=== PATIENT | male | born 1990 | race Caucasian/White ===

== ENCOUNTER 2017-03-22 10:28 | Inpatient (IN) | payer OTHER ==
[~2017-03-22] VITALS: Ht 182.9 cm; Wt 85.6 kg
--- NOTE | ~2017-03-22 | INDIVTXPL2 ---
"PATIENT: JAMILAH SAMANIEGO | | [facility] UNIT #: [id number] | [address] AGE/SEX: 26 M : 88 | [address] | [place] [phone] ADMIT/REG DATE: 03/22/17 | ROOM: [facility] LOC: ADTC | ADTC | Individualized Treatment Plan DATE: 04/07/17 Problem Statement/Issue Identified: Client unresolved grief and difficulty coping with stress so turned to drinking and needs to address these grief/stress issues to avoid relapse. Goal: Client has grief/trauma over breakup/difficulty coping and is to address this while in treatment (can do EMDR therapy). Objectives/Activities to achieve goal: 1. Client is to get oriented to EMDR by watching video and doing EMDR safe-place with cousnelor to help with relaxation, can be a skill to cope with stress in general. Share with counselor after he practices it. Due Date: 04/07/17 Complete: Incomplete: 2. Client is to fill out Grief packet on grandfather and write VENT letter on relationship loss. Process feelings with counselor and if wants to, can also share in group. Due Date: 04/15/17 Complete: Incomplete: 3. Client can do EMDR with counselor, if willing, on traumatic losses. See counselor notes. Due Date: 04/14/17 Complete: Incomplete: Client Signature Date Counselor Signaure: Date Outcome/Measurement of Progress Towards Goal: Counselor Signature: Date "
--- NOTE | ~2017-03-22 | TXPLANREV ---
"PATIENT: JAMILAH SAMANIEGO | | [facility] UNIT #: [id number] | [address] AGE/SEX: 26 M : 88 | [address] | [place] [address] ADMIT/REG DATE: 03/22/17 | ROOM: [facility] LOC: ADTC | ADTC | Treatment Plan/Staffing Review Date: 04/12/17 Treatment plan was reviewed and determined appropriate as written: yes, client is working on Relapse Prevention. Treatment plan was reviewed and the following changes/addition/deletions are necessary: Discharge plans were reviewed and determined appropriate as previously documented: Client is to discharge on 04/19/17, He is being referred back to Leland Glover at [place] in [place] on 04/23 at 9am and aftercare group on Mondays 6-7pm starting 04/26/17. Client also is referred to AA/NA 3+x/week and to talk with sponsor(s) 3-4x/week. And hopefully work steps with a sponsor. 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 Staff Present: Khloe Stevenson, Hoa Lopez, Thiago Livingston, Jossie Galvez, Vannessa Mario, Patrick Wang PRIMARY COUNSELOR: Umu Oliver Client Signature Counselor Signature Date Time "
--- NOTE | ~2017-03-22 | INDIVTXPL2 ---
PATIENT: JAMILAH SAMANIEGO | | [facility] UNIT #: [id number] | [address] AGE/SEX: 26 M : 88 | [address] | [place] [address] ADMIT/REG DATE: 03/22/17 | ROOM: [facility] LOC: ADTC | ADTC | Individualized Treatment Plan DATE: 04/13/17 Problem Statement/Issue Identified: Client has weak boundaries, needs to improve ability to be assertive and hold boundaries for self to cope with high risk situations and avoid relapse. Goal: Client is to build stronger boundaries and learn about boundaries/assertiveness to strengthen his recovery. Objectives/Activities to achieve goal: 1. Client is to practice saying "no" to peers by first letting them know he needs help by them creating/role-playing situations that he needs to say "no". Share progress with counselor. Due Date: 04/16/17 Complete: Incomplete: Client Signature Date Counselor Signaure: Date Outcome/Measurement of Progress Towards Goal: Counselor Signature: Date
--- NOTE | ~2017-03-22 | INDIVTXPL2 ---
"PATIENT: JAMILAH SAMANIEGO | | [facility] UNIT #: [id number] | [address] AGE/SEX: 26 M : 88 | [address] | [place] [address] ADMIT/REG DATE: 03/22/17 | ROOM: [facility] LOC: ADTC | ADTC | Individualized Treatment Plan DATE: 04/09/17 Problem Statement/Issue Identified: Client relapsed/returned to alcohol after previous treatment attempts. Goal: Client is to learn about relapse prevention, identifying relapse triggers and develop a plan of how to get through strugges/triggers and succeed in recovery. Objectives/Activities to achieve goal: 1. Client is to attend Relapse Prevention classes every Wednesday 3-4pm while in treatment and participate. Also see 5:30pm education on 04/13 and 04/15 to help build skills in relapse prevention. See relapse class and education notes. Due Date: 04/19/17 Complete: Incomplete: 2. Client is to fill out Relapse Prevention packet, identifying top 5-10 relapse triggers and discuss with counselor how he can cope/actions to take to avoid relapse. Due Date: 04/19/17 Complete: Incomplete: Client Signature Date Counselor Signaure: Date Outcome/Measurement of Progress Towards Goal: Counselor Signature: Date "
--- NOTE | ~2017-03-22 | TXPLANREV ---
"PATIENT: JAMILAH SAMANIEGO | | [facility] UNIT #: [id number] | [address] AGE/SEX: 26 M : 88 | [address] | [place] [phone] ADMIT/REG DATE: 03/22/17 | ROOM: [facility] LOC: ADTC | ADTC | Treatment Plan/Staffing Review Date: 04/05/17 Treatment plan was reviewed and determined appropriate as written: yes, client has completed step 1 and is working on feelings letters, reading booklets on healthy/unhealthy relationships and Shame-Faced. Treatment plan was reviewed and the following changes/addition/deletions are necessary: Discharge plans were reviewed and determined appropriate as previously documented: Discharge plans were reviewed and determined to be as follows: Client is scheduled to discharge on 04/19/17, he is being referred to his therapist-Leland Glover of [facility]. He also is to attend 3-5 AA/NA meetings a week and is to open up to sponsor about feelings/stressors daily as well as talk to understand how to apply recovery program/work steps/etc. 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 His parents are very supportive of his treatment and recovery. Staff Present: Lorenza Chase, Khloe Stevenson, Jossie Galvez, Yolanda Hall, Hoa Lopez, Patricia Atkinson, Thiago Livingston, Patrick Wang, Vannessa Mario. PRIMARY COUNSELOR: Umu Oliver Client Signature Counselor Signature Date Time "
--- NOTE | ~2017-03-22 | INDIVTXPL2 ---
"PATIENT: JAMILAH SAMANIEGO | | [facility] UNIT #: [id number] | [address] AGE/SEX: 26 M : 88 | [address] | [place] [address] ADMIT/REG DATE: 03/22/17 | ROOM: [facility] LOC: ADTC | ADTC | Individualized Treatment Plan DATE: 03/29/17 Problem Statement/Issue Identified: Client continues to use alcohol despite ongoing negative consequences. Goal: Client is to learn about alcohol/drug addiction, identifying consequences of his use and learn how to work a stronger AA/NA program of recovery. Objectives/Activities to achieve goal: 1. Client is to fill out Getting Started and Step 1 packets, identifying 15+ consequences of his use and share with counselor. Share selected pages in group. Due Date: GS-04/02/17 & Step 1-04/07/17 Complete: Incomplete: 2. Client is to call temporary sponsor weekly while in treatment and share/ask questions to get to know each other better. Report progress to counselor. Due Date: ongoing Complete: Incomplete: 3. Client is to attend and talk at AA/NA weekly, and would benefit to help chair meeting or pick topic at a meeting. Due Date: ongoing Complete: Incomplete: Client Signature Date Counselor Signaure: Date Outcome/Measurement of Progress Towards Goal: Counselor Signature: Date "
--- NOTE | ~2017-03-22 | RESCARESUM ---
PATIENT: JAMILAH SAMANIEGO | | [facility] UNIT #: [id number] | [address] AGE/SEX: 26 M : 88 | [address] | [place] [phone] ADMIT/REG DATE: 03/22/17 | ROOM: [facility] LOC: ADTC | ADTC | Summary of Residential Care Primary Counselor: Umu Oliver [facility] Date of Admission: 03/22/17 Date of Discharge: 03/19/17 Referral Source: self, Leland Glover [facility], and Gas Pumper Jasson Grimaldo Primary Care Provider Prior to Admission: Dr. Arrieta Admitting Diagnosis: F10.20 Alcohol use disorder-severe, F17.20 Tobacco use disorder Discharge Diagnosis: same Goals Achieved: Client successfully completed residential treatment for alcoholism. He learned about chemical addictions and he did Step 1 very thoroughly. He did get a sponsor and a personal value for AA/NA meetings showing acceptance over powerlessness of his addiction. Client did work on Relapse Prevention, Grief over loss of grandfather, trauma/ resentment over breakup with S.O., owning feelings and how his addiction hurt others to his parents in feelings letters, and having boundaries to say "no". He did EMDR on the traumatic breakup with his girlfriend and responded well to this. 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 Continued Obstacles to Sobriety/Relapse Issues: boredom, self-pity, not asking for help, old using friends/places, slack on meetings, stress, anger, stuffing feelings, put on a front that he is fine, perfectionism. Family Issues Addressed: Clients parents did come to the Family Program with client and a private family session. They appear very supportive of clients recovery and career. They all shared feelings letters with one another and this seemed positive. 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 Client also responded well to EMDR therapy and is a good candidate to do this in the future if needed. PATIENT: JAMILAH SAMANIEGO | | [facility] UNIT #: [id number] | [address] [place] [address] AGE/SEX: 26 M : 88 | [address] | [place] [phone] ADMIT/REG DATE: 03/22/17 | ROOM: [facility] LOC: ADTC | [facility] | Summary of Residential Care Reason For Discharge: x Completed Residential TX Goals and Ready For Next Level of Care Left Tx Against Medical Advice/Treatment Goals Not Complete Completed Residential Tx Goals But Refusing Continuing Care Recommendations Discharged Due to Noncompliance/Treatment Goals not Completed Discharged Earlier Than Planned Due to: Continuing Care Plan/Recommendations: Intensive Partial Care x Sponsor Partial Care x AA Meetings/NA Meetings x Outpatient Co-dependency Services [facility] Marriage Counseling Other Specific Continuing Care Plan: Client is being referred to Leland Glover at [place] and is to see him 04/23/17 at 9am for his first aftercare session and he is to be in group therapy on Wednesday nights from 6-7pm on 04/26/17. He also is to attend AA/NA 3x/week and call his temporary sponsor 3x/week while finding his permanent AA sponsor. PRIMARY COUNSELOR: Umu Oliver
--- NOTE | ~2017-03-22 | INDIVTXPL2 ---
"PATIENT: JAMILAH SAMANIEGO | | [facility] UNIT #: [id number] | [address] AGE/SEX: 26 M : 88 | [address] | [place] [phone] ADMIT/REG DATE: 03/22/17 | ROOM: [facility] LOC: ADTC | ADTC | Individualized Treatment Plan DATE: 03/29/17 Problem Statement/Issue Identified: Client is experiencing family distancing and his drinking worried them as a result of past alcohol usage. Goal: Client is to learn about effects of addiction on self/family & build more open/honest communication with family to help with support. Objectives/Activities to achieve goal: 1. Client is to attend Family Educational program and Wednesday and participate. See client notes. Due Date: 04/12/17 Complete: Incomplete: 2. Client is to have family session with parents, discussing his past use of alcohol, their concerns and his plan of recovery to improve honest communication. Due Date: 04/12/17 Complete: Incomplete: 3. Client is to write feelings letters to parents and [place], owning how his addiction hurt them and his feelings and plan of change/improvement/recovery. Share in group/family group. Due Date: 04/12/17 Complete: Incomplete: Client Signature Date Counselor Signaure: Date Outcome/Measurement of Progress Towards Goal: Counselor Signature: Date "
--- NOTE | ~2017-03-22 | CLPRLASSUM ---
"PATIENT: JAMILAH SAMANIEGO | | [facility] UNIT #: [id number] | [address] AGE/SEX: 26 M : 88 | [address] | [place] [address] ADMIT/REG DATE: 03/22/17 | ROOM: [facility] LOC: ADTC | ADTC | Client Problem List/Assessment Summary Date: 03/29/17 Problems identified by the client: alcoholism/3 DUI's, family, cope with stress/grief, boundaries, relapse prevention Problems identified by significant others: alcoholism, cope with stress Client's Strengths: friendly, determined/strong-willed, creative Problem List: Code: T Client continues to use alcohol despite ongoing negative consequences. Code: T Client is experiencing family distancing and his drinking worried them as a result of past alcohol usage. Code: T Client unresolved grief and difficulty coping with stress so turned to drinking and needs to address these grief/stress issues to avoid relapse. Code: T Client has weak boundaries, needs to improve ability to be assertive and hold boundaries for self to cope with high risk situations and avoid relapse. Code: T Client relapsed/returned to alcohol after previous treatment attempts. Code Gibbs: T: to be addressed during course of treatment O: problem noted, expected to resolve itself with abstinence--specific tx plan not required R: problem noted, will be referred upon discharge PRIMARY COUNSELOR: Umu Oliver"
--- NOTE | 2017-03-22 16:20 | NUR ---
Recovery 101- nurse needed to meet with client so he was only in class 10 minutes and did get questionaire on consequences of his use.
--- NOTE | 2017-03-22 17:14 | NUR ---
ADMISSION NOTE Client is a 26 y/o single male, referred to treatment by probation and brought here today by his mom from his home in [place]. Client states NKMA and brings no medications with him today. Client states DOC is alcohol, last used 3 months ago in an unknown amount. CLient anticipates family group participation from his mom. Client was searched, no contraband found. Rights/Responsibilities: Copy given and explained to client. Signed and accepted by client. Client oriented to physical lay out of the ADTC unit, given Big Book and admission packet. A Douglas was assigned. Rory
--- NOTE | 2017-03-22 17:34 | NUR ---
IS 1 hr/ Client and counselor got acquainted, went over his initial tx plan and gambling screen. Client reports he got on probation March 2016 after 3rd DUI, has interlock for car. Went to IOP before court, didn't take it serious and relapsed, so they thought he wouldn't qualify for Res.Tx so he went through IOP again and relapsed before completed so came here. 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 He says this can be very stressful and he turns to alcohol. He shared not very close to siblings. Parents confronted him after 3rd DUI so are supportive of him getting treatment, dad is an [employer] news assignment editor. He said dad is too busy to come but mom will come and she brought him here. He lives with his parents. He came to like AA and has AA friend with over 1 year in that is doing "really well" and they like to go to dirt car races together. Attends meetings 2-3x/week. His PO randomly calls him to come in which he doesn't like. Oriented to counseling and is to finish initial paperwork and then start on packet.
--- NOTE | 2017-03-22 23:06 | NUR ---
Client played a game for rec and attended on site N.A.Meeting SE: Meeting new people in treatment
--- NOTE | 2017-03-23 04:57 | NUR ---
Bed Note: Client was in bed and motionless at all bed checks
--- NOTE | 2017-03-23 12:17 | NUR ---
A.M. 1.5 hr group/ Assignments shared were step 1, feelings letters, timeline to music, and a group member asking for help on how to forgive self. This client was attentive and participated by sharing what brought him here.
--- NOTE | 2017-03-23 15:11 | NUR ---
Tech Note: Client joined group for afternoon walk, listened to speaker from [facility] and is working on Getting Started.
--- NOTE | 2017-03-23 16:01 | NUR ---
Tech Note: Client attended Relapse Prevention education with Yolanda.
--- NOTE | 2017-03-23 19:54 | NUR ---
Education: 1 hour lecture on STD/AID/HIV gimarvel by [facility].
--- NOTE | 2017-03-23 22:33 | NUR ---
Tech note : Client worked on [email or web address] crafts and get well cards. Client participated in guided meditation and went to an onsite AA meeting.
--- NOTE | 2017-03-24 04:15 | NUR ---
Bed note: Client was in bed with eyes closed and no distress at all bed checks
--- NOTE | 2017-03-24 11:13 | NUR ---
Tech Note: Client is working on the [employer] Book.
--- NOTE | 2017-03-24 12:24 | NUR ---
AM GROUP 13:1/1.5 HR: Client and peers heard multiple clients process assignments and issues. Most did offer feedback, asked clarifying questions and shared from their own experiences. This client sat quietly, but appeared attentive.
--- NOTE | 2017-03-24 13:18 | NUR ---
Tech Note: Client walked in the hallways for afternoon exercise.
--- NOTE | 2017-03-24 13:22 | NUR ---
Education One Hour: Client heard from members of the recovery community, who shared their experience, strength and hope.
--- NOTE | 2017-03-24 17:28 | NUR ---
SPIRITUAL EDUCATION 1 HR. Topics today were orienting newcomers and then broke into groups and did presentations on their sections from [employer].
--- NOTE | 2017-03-24 18:46 | NUR ---
Education: 1 hour lecture given by counselor on "Disease concept".
--- NOTE | 2017-03-24 22:26 | NUR ---
Tech note: Client played catch phrase for rec and attended an onsite NA meeting. SE: NA
--- NOTE | 2017-03-25 04:59 | NUR ---
Bed note: Client was in bed with eyes closed and no distress at all bed checks.
--- NOTE | 2017-03-25 10:43 | NUR ---
Tech Note; Client participated in light stretching for morning exercise. Client stated that he is working on, "How to Get Started in Treatment' and reading the Big Book.
--- NOTE | 2017-03-25 11:30 | NUR ---
AM GRP 1.5 HRS, Ratio 1:12/ Clt participated in grp discussion on various topics, including having fun in recovery, how addiction hurts everyone around them, and what to do just to stay in recovery. This clt participated, but did so minimally.
--- NOTE | 2017-03-25 12:51 | HP ---
ADMIT: 03/22/2017 RM/LOC: [facility] MR#: [id number] [address] [facility] [address] [place] [id number] JAMILAH SAMANIEGO [id number] [address] [place] [address] History and Physical SEX: M AGE: 26 : 1990 DATE OF SERVICE: CHIEF COMPLAINT: Alcoholism, drinking out of control, continuing to drink while on probation. CLINICAL HISTORY: The patient is a 26-year-old white male from [place], [place] admitted to the residential care program for treatment of his alcohol use disorder. The patient readily admits that he has a problem with alcohol. He is a daily drinker, typically drinking at least 6 to 10 beers per day. Drinking heavier on weekends. The patient notes that his drinking has led to significant legal problems. He has been arrested for 3rd offense DUI on 02/24/2016. The patient subsequently had a chemical dependency evaluation, and it was recommended that he go to treatment. He has been doing outpatient treatment at [facility] in [place], but has continued to drink. Despite being involved in intensive outpatient therapy and continuing to be on probation, his diplomatic officer gave him the option of coming to treatment or having his probation revoked. The patient notes he opted to come to treatment recognizing that his drinking is causing him significant financial as well as legal problems as well as affected his business. 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 He notes alcohol is his drug of choice. He has been drinking alcohol since approximately age 16. His drinking has escalated over the last 5 years. As noted, daily drinker drinking to intoxication. He does admit when drinking heavier. He does have blackouts. He has had significant legal problems, which has led to his current financial issues as well. Admitted at this time for treatment of his alcohol use disorder. He denies any other illicit drug use. PAST MEDICAL HISTORY: PREVIOUS HOSPITALIZATIONS: None. PREVIOUS OPERATIONS: None. CURRENT MEDICATIONS: None. ALLERGIES: None known. MEDICAL ILLNESSES: He denies any chronic medical problems. Notes he has no ongoing health problems. He is noted to be a smoker, typically smokes less than a pack a day. REVIEW OF SYSTEMS: A 12-point review of systems is negative with no significant cardiac, pulmonary, GI, , musculoskeletal, or neurologic problems. SOCIAL HISTORY: The patient is single. He graduated high school in 2007. 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 He notes he currently lives with his parents in [place], [place]. He has no children. ADMIT: 03/22/2017 RM/LOC: [facility] MR#: [id number] [address] [place] [phone] JAMILAH SAMANIEGO [id number] [address] [place] [address] History and Physical SEX: M AGE: 26 : 1990 FAMILY HISTORY: The patient notes that his parents are still . Their health is described as good. He notes his parents used to drink fairly heavily, but no longer drink. He is the youngest of 3 children in the family. He has an older sister and older brother, but he is unaware of anyone else in the family with a significant chemical dependency issue. PHYSICAL EXAMINATION: VITAL SIGNS: Temp is 97.4, pulse 78, respirations 14, blood pressure 145/87, height 6 feet, and weight is 187 pounds. GENERAL: The patient is a 26-year-old white male, who appears his stated age. He is in no acute distress. He is oriented x3. HEENT: Today is unremarkable. Nose and throat noninflamed. Oropharynx normal. NECK: Supple. Thyroid not enlarged. No cervical adenopathy. No neck masses. LUNGS: Noted to be clear. HEART: Regular rhythm without murmur. ABDOMEN: Today is soft and nontender. No masses. No organomegaly. No hernias. Bowel sounds are normoactive. He has no CVA or suprapubic tenderness. GENITALIA: Normal male. EXTREMITIES: Normal to gross exam. No bony deformities. No clubbing or cyanosis. No peripheral edema. INTEGUMENT: No rashes or worrisome skin lesions. NEUROLOGIC: Exam is within normal limits. No focal deficit. Balance and gait normal. Cranial nerves II through XII grossly intact. MENTAL STATUS EXAMINATION: He is pleasant, cooperative. Affect is appropriate. He has no bizarre ideation. No delusions. No significant depressive symptoms. He is oriented x3. He appears to be of average intelligence. His memory is intact. Insight is limited. Judgment is guarded. ASSESSMENT AT THE TIME OF ADMISSION: 1. Alcohol use disorder, severe. 2. Tobacco use disorder. PLAN: Plan is to admit the patient to the residential care program with tentative discharge date of 04/19/2017 upon completion of treatment. He wants return to his home in [place], [place] and continue to follow up with one of the outpatient aftercare programs in [place]. Adelso Lindsey MD/ tomas JOB #: [id number] CC: Adelso Lindsey, Attending Physician ADMIT: 03/22/2017 RM/LOC: [id number] [facility] MR#: [id number] [facility] [id number] JAMILAH SAMANIEGO [address] [address] [place] [address] History and Physical SEX: M AGE: 26 : 1990 NO FAMILY PHYSICIAN, Family Physician
--- NOTE | 2017-03-25 13:55 | NUR ---
IS 1 hr/ Counselor and client went over BPS and discussed more about clients life. He fully knows he was chronic alcoholic, couldn't stop after having 1 beer and was having blackouts. He states he was skipping classes in college and his grades suffered. He shared about a belief in God. Will set up tx planning and Problems/needs next session. He is done working on GS packet and was given Step 1.
--- NOTE | 2017-03-25 14:00 | NUR ---
FAMILY CONTACT- Clients parents were called, mom said they will be coming, did set up family session 04/01 at 4:40. They hope he works on being sober, how to cope being around old drinking friends. Counselor did bring up 1/2way house can be plan B if client struggles. They said most of clients work is in [place].
--- NOTE | 2017-03-25 16:12 | NUR ---
Step Education 1 hr/Focus was on step 4 making a searching and fearless moral inventory of ourselves. Handed out some questions each person answered on paper and then we discussed. This person participated.
--- NOTE | 2017-03-25 16:20 | NUR ---
Education 1 Hour: Client heard from two members of the recovery community, who shared their experience strength and hope.
--- NOTE | 2017-03-25 20:24 | NUR ---
Education: 1 Hour. Client attended Chava Sanchez "Unhealthy Families" video.
--- NOTE | 2017-03-25 22:58 | NUR ---
Client went on a walk for rec, participated in guided meditation, and attended the on unit A.A.Meeting. SE: Speaker
--- NOTE | 2017-03-26 05:34 | NUR ---
tech note: client was motionless in no distress at all bed checks.
--- NOTE | 2017-03-26 11:30 | NUR ---
Group 1.5 hr/ 12:1 Clients heard peers share GS and Step 1 packets, this client was attentive.
--- NOTE | 2017-03-26 14:46 | NUR ---
Tech Note: Client joined our group walk for exercise. Watched video titled "Sound of Silence" and is working on Step 1.
--- NOTE | 2017-03-26 15:40 | NUR ---
PEER REVIEWS 1.25 HRS: Clt participated in peer reviews and took a risk to give open and honest feedback to those receiving a review.
--- NOTE | 2017-03-26 20:29 | NUR ---
TECH NOTE: Client participated in reading of guidelines, watched TV/movies SE: pepsi back in the pop machine
--- NOTE | 2017-03-27 04:31 | NUR ---
BED NOTE: Client was in bed, motionless with eyes closed all bed checks.
--- NOTE | 2017-03-27 16:17 | NUR ---
Tech Note: Client is working on Step 1.
--- NOTE | 2017-03-27 20:21 | NUR ---
Tech note: Clt played a game for recreation and attended offsite AA mtg. Clt played cards and watched movies. SE was movie
--- NOTE | 2017-03-28 04:25 | NUR ---
BED NOTE: Client was in bed motionless with eyes closed all three bed checks.
--- NOTE | 2017-03-28 15:48 | NUR ---
Tech Note: Client participated in Big Book study. Client stated that he is working on Step One.
--- NOTE | 2017-03-28 23:01 | NUR ---
Tech Note: Client attended the A.A.Panel with Kj Rivera SE: Big Book Study and A.A.Panel
--- NOTE | 2017-03-29 04:37 | NUR ---
Bed Note: Client was laying in bed and motionless at all bed checks.
--- NOTE | 2017-03-29 09:44 | NUR ---
Tech note: Client is working on BB
--- NOTE | 2017-03-29 11:30 | NUR ---
PEER REVIEW 1.5 hr/ Clients had 4 peer reviews and this client gave good feedback.
--- NOTE | 2017-03-29 12:55 | NUR ---
Education Note: Clients attended speaker for education Kit J.
--- NOTE | 2017-03-29 16:00 | NUR ---
RECOVERY 101 1 hr/ Clients discussed what they are learning from attending the 12 step recovery meetings about fundamentals of recovery, how to work a program such as: get and use a sponsor, work the steps, read C.A.L., HOW/honesty, openminded &willing, service work, HP/spirituality, opening up, slogans, serenity prayer, home group/meetings, etc. Clients shared and got into story telling at times. They learned 15% is addiction and 85% is the living problem so this is why keep going to meetings and working the program is vital.
--- NOTE | 2017-03-29 17:19 | NUR ---
IS 1 hr/ Client and counselor went over BPS and did treatment planning, discussed his problems/needs. He shared how hurtful situation with GF and a lyn friend of his that cheated with her, he stayed in relationshp a couple more years but his alcoholism progressed and he didn't treat her right. Client shared how chronic his drinking got, did drink to help with hangovers in AM, drank to cope, drank for grief, etc. He will plan to write ammends letters to parents and his dog. Client said he shared in group about this past relationship and now he has difficulty trusting anyone.
--- NOTE | 2017-03-29 17:21 | NUR ---
TRAUMA NOTE- Client had major hurt/trauma when lyn friend cheated with his GF, and his grandfathers was hard on him. May benefit from grief work and EMDR.
--- NOTE | 2017-03-29 18:19 | NUR ---
Education: 1 Hour. Client attended "Feelings" lecture presented by staff.
--- NOTE | 2017-03-29 23:11 | NUR ---
tech note: client played Catch Phrase for recreation & attended onsite NA meeting. SE: NA
--- NOTE | 2017-03-30 04:46 | NUR ---
tech note: client was motionless in no distress at all bed checks.
--- NOTE | 2017-03-30 15:13 | NUR ---
A.M. 1.5 hr group/ratio 11/18/ Group heard a step 1, how to get started, grief letter and discussed the importants of not glorifying as one client was confronted on this. This client shared his getting started and checked off likes to control others on the check off list. 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 He said his gpa was like his dad cause dad was always working. Gpa age 14. He said his parents have a lot of money and have always helped him.
--- NOTE | 2017-03-30 15:44 | NUR ---
Relapse Prevention, 1.0 hours, Client attended and actively participated in relapse prevention education which focused on compulsive behaviors and relapse.
--- NOTE | 2017-03-30 16:08 | NUR ---
Tech Note: Client watched Part 2 of Predator by Lenin Trujillo and had Relapse Prevention for 3:00 education. Assignment being worked on: Feelings Letters.
--- NOTE | 2017-03-30 16:22 | NUR ---
Education Note: Client attended Relapse Prevention presented by counselor Patricia.
--- NOTE | 2017-03-30 20:17 | NUR ---
Education: 1 hour lecture given by counselor on relapse.
--- NOTE | 2017-03-30 20:26 | NUR ---
tech note: Client went for walk for rec, participated in guided meditation and attended AA meeting
--- NOTE | 2017-03-30 23:35 | NUR ---
Tech Note: Client went on a walk for rec and attended the on unit A.A.Meeting. Client participated in Guided Meditation at 1930. SE: Wilmar
--- NOTE | 2017-03-31 04:55 | NUR ---
Bed note: client was in bed with eyes closed and no distress at all bed checks.
--- NOTE | 2017-03-31 10:19 | NUR ---
Tech notes: Client is working on Fl's
--- NOTE | 2017-03-31 11:30 | NUR ---
BIG GROUP 4:21 Group was brought together to discuss issues of old behaviors, treatment relationships and other violations of guidlines that are being kept secret. All were encouraged to look at the difficulty they have confronting with assertiveness, rather than passive/aggressive. This client was quiet until prompted and then shared his frustration at the immature behaviors and violations of guidelines and contracts.
--- NOTE | 2017-03-31 13:47 | NUR ---
Educational note: Client watched a video for education.
--- NOTE | 2017-03-31 17:15 | NUR ---
SPIRITUaL EDUCATION 1 HR. Clients were oriented to the group and learned difference between spirituality and congregation. We addressed GRATITUDE today with discussion, worksheet and activity.
--- NOTE | 2017-03-31 18:23 | NUR ---
Education: 1 Hour. Client attended "Self Esteem" lecture presented by staff.
--- NOTE | 2017-03-31 23:16 | NUR ---
tech note: client went on a walk for recreation & attended the onsite NA meeting. Client was redirected for his language. SE: MIKI.
--- NOTE | 2017-04-01 05:10 | NUR ---
Bed Note: Clt lay motionless in bed with eyes closed showing no distress at all bed checks.
--- NOTE | 2017-04-01 11:12 | NUR ---
Tech Note: Client participated in Spiritual Enrichment. Client stated that he is working on writing Feelings Letters.
--- NOTE | 2017-04-01 11:46 | NUR ---
Group 1.5 Hr Ratio 1:10/Topics today were two step ones, two Gettings started packets andtwo feelings letters. Client shared his step one and he did a good job looking at how he is powerless and his life is unmanagable.
--- NOTE | 2017-04-01 16:53 | NUR ---
FAMILY EDUCATION 3 HRS. Client was accompanied by his parents. They took part in the discussion on the disease concept. Client shared consequences of his addiction.
--- NOTE | 2017-04-01 18:00 | NUR ---
FAMILY SESSION 1 HR/ Client and his parents present, they came from by [facility] and plan to be back 04/12-wednesday family day so letters are due then. Clients parents first became concerned when client was in college, his grades went down and he was skipping classes. He left [employer] and went to [employer]. 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 Also because of his drinking he practically stopped having family contact. His last DUI he admitted how bad it was, 09/22/[address], 3rd offense and parents did help as didn't want him to have felony. They love their "old" son with his witty/funny humor but when drinking he would rarely speak. 5-6 years ago had issue with GF she came to parents and expressed concerns with clients drinking and they said they wished they would of believed her. Also mentioned that clients Gf and Best friend cheated so he has been hurt deeply (his counselor in [place] also expressed concern that client was avoiding dating due to fear). Client said his counselor completed tx here 4+ years ago and recommends this tx center highly.
--- NOTE | 2017-04-01 19:15 | NUR ---
Education 1 Hour: Client heard a presentation on marijuana.
--- NOTE | 2017-04-01 22:10 | NUR ---
Education 1 HR: Clt watched video by Daniel "Ben Goldberg" with staff present.
--- NOTE | 2017-04-01 22:32 | NUR ---
Tech Note: Clt walked for recreation, attended GM and onsite AA mtg. SE AA mtg
--- NOTE | 2017-04-02 04:45 | NUR ---
Bed Note: Clt lay motionless in bed with eyes closed showing no distress at all bed checks.
--- NOTE | 2017-04-02 11:30 | NUR ---
GROUP 1.5 HRS. 1:11 Group discussion included step 1 assignment to identify how betrayed values (pg. 10) and effects on others (pg. 11) as well as feelings letters and sharing damage to relationships. This client offered appropriate feedback.
--- NOTE | 2017-04-02 15:58 | NUR ---
PEER REVIEWS 1.25 HRS: Clt participated in peer reviews and took a risk to give open and honest feedback to those receiving a review.
--- NOTE | 2017-04-02 16:14 | NUR ---
Tech Note: Client listened to speaker Jeramy Rosa and is working on Feelings Letters.
--- NOTE | 2017-04-02 20:52 | NUR ---
Tech note: client watched TV and movies. Walked to optional offiste AA meeting. SE:speaker
--- NOTE | 2017-04-03 04:58 | NUR ---
Bed note: Client was in bed with eyes closed and no distress at all bed checks.
--- NOTE | 2017-04-03 16:50 | NUR ---
Tech Note: Client attended the A.A.Meeting at [facility] and [place] and is working on Feelings Letters.
--- NOTE | 2017-04-03 22:49 | NUR ---
Tech note: Client walked around the park a few times for rec. Client walked to an off site AA meeting. SE: maria luisa
--- NOTE | 2017-04-04 05:01 | NUR ---
Bed note: client was in bed with eyes closed and no distress at all bed checks.
--- NOTE | 2017-04-04 15:29 | NUR ---
TECH NOTE: Client participated in big book study, attended study time, completed chores and watched tv/movies.
--- NOTE | 2017-04-04 23:23 | NUR ---
tech note: Client participated in Community Clean. Client talked on the phone & watched tv. SE: Fred
--- NOTE | 2017-04-05 04:45 | NUR ---
Bed note: client was in bed with eyes closed and no distress at all bed checks.
--- NOTE | 2017-04-05 15:15 | NUR ---
Tech note: Client is working on Fl's.
--- NOTE | 2017-04-05 22:56 | NUR ---
Tech Note: Clt walked for recreation and attended onsite NA mtg. Watched tv and played game. SE was NA
--- NOTE | 2017-04-06 04:44 | NUR ---
Bed Note: Clt lay motionless in bed with eyes closed showing no distress at all bed checks.
--- NOTE | 2017-04-06 11:30 | NUR ---
Morning Group, 11/15, 1.5 hours, Client attended and actively participated in group discussion. Client talked about "being on the fence" and thinking that he cannot have fun if he is completely sober.
--- NOTE | 2017-04-06 15:36 | NUR ---
Tech Note: Client participated in light stretching for morning exercise and went on an outdoor walk in the afternoon. Client stated that he is working on writing Feelings Letters.
--- NOTE | 2017-04-06 15:47 | NUR ---
Education 1 Hour: Client watched the video, "How to Sabotage your Treatment."
--- NOTE | 2017-04-06 22:58 | NUR ---
Tech note: Client walked a mile for rec, did guided meditation and attended an onsite AA meeting. Client was up past curfew, had his pants pulled up under his chin. SE; Became president
--- NOTE | 2017-04-07 04:22 | NUR ---
Education: 1 Hour. Client attended presentation by staff on "Step 1."
--- NOTE | 2017-04-07 05:14 | NUR ---
Bed note: Client was in bed with eyes closed and in no apparent distress at all bed checks.
--- NOTE | 2017-04-07 09:40 | NUR ---
Tech notes: Client is working on Fl's and mtg with cintia
--- NOTE | 2017-04-07 11:41 | NUR ---
Group 1.5 hr Ratio 1:7/Topics today were orientating two new clients to group rules and goals, a good bye letter to an addiction and being able to say no. Client shared a feelings letter to his dog and got good feedback from that as dogs can become very close and a good source of venting.
--- NOTE | 2017-04-07 13:30 | NUR ---
Education note: Client attend educational speaker Meseret Johnson
--- NOTE | 2017-04-07 16:30 | NUR ---
SPIRITUAL EDUCATION 1 HR. Newcomers were oriented to group. Todays topic was addicted self vs spiritual self which we discussed first then they depicted the contrast in artwork. The ones that finished first wrote letters to welcome anonymous newcomers.
--- NOTE | 2017-04-07 22:28 | NUR ---
Tech note : Client played catch phrase for rec and attended an onsite NA meeting. SE; NA
--- NOTE | 2017-04-08 04:41 | NUR ---
Bed note: client was in bed with eyes closed and no distress at all bed checks.
--- NOTE | 2017-04-08 10:47 | NUR ---
Tech Note : Client participated in Spiritual Enrichment. Client stated that he is working on writing Feelings Letters.
--- NOTE | 2017-04-08 11:30 | NUR ---
AM GRP 1.5 HRS, Ratio 1:10/ Clt participated in grp discussion on various topics, including relationships, with PO's, counselors, s/o's and kids. He sat mostly quiet, but when he did confront a peer, he did it kindly, truthfully and was able to give good feedback.
--- NOTE | 2017-04-08 13:10 | NUR ---
Education 1 Hour: Client heard a recovery speaker who addressed the subject of hope.
--- NOTE | 2017-04-08 16:52 | NUR ---
Step education/1 hr/ Focus was on step 7 of the 12 steps "Humbly asked him to remove shortcomings", and each person completed a set of questions on paper and then discussed. This client participated and a fear he shared was losing old friends.
--- NOTE | 2017-04-08 20:34 | NUR ---
Education: 1 Hour. Client attended Tj Chun video "Step 5."
--- NOTE | 2017-04-08 22:56 | NUR ---
Client went on a walk for rec, participated in guided meditation, and attended the on unit A.A.Meeting. SE: A.A.Meeting
--- NOTE | 2017-04-09 05:24 | NUR ---
N) Kaushik went on walk for rec,participated in Guided Meditation, attended AA mtg.
--- NOTE | 2017-04-09 05:28 | NUR ---
Bed Note: Client was in bed and motionless at all bed checks.
--- NOTE | 2017-04-09 12:37 | NUR ---
GROUP 1.5 HR/ 11:1 Clients went over new rules for new member, and this client gave feedback.
--- NOTE | 2017-04-09 13:00 | NUR ---
PEER REVIEWS 1.5 HRS: Clt participated in peer review process and was able to give open, honest feedback to those receiving a review.
--- NOTE | 2017-04-09 14:24 | NUR ---
Tech Note: Client watched Recovery Issues Part 3. Is working on Feelings Letters.
--- NOTE | 2017-04-09 15:40 | NUR ---
IS .75 hr/ Client and counselor went over tx planning, did give him grief pkt to do re: grandfather and Vent letter for Ex that was a traumatic loss. Client is working on feelings letters to parents, did have one done to mom and helped him see to add more feelings and his recovery plan. He already did one for his dog and shared in group. Client will do EMDR next week on traumatic loss, then will give Relapse Prev. packet. Also needs to do assertive skill/boundary building by saying "no" with peers.
--- NOTE | 2017-04-09 20:11 | NUR ---
Tech note: Clt read guidelines as a grp, attended optional AA mtg and watched tv/movies. SE was peer review
--- NOTE | 2017-04-10 05:19 | NUR ---
BED NOTE: Client was in bed, motionless with eyes closed all bed checks.
--- NOTE | 2017-04-10 16:47 | NUR ---
Tech Note: Client attended NA Panel today and is working on Feelings Letters and Grief Packet.
--- NOTE | 2017-04-10 20:12 | NUR ---
TECH NOTE: Client participated in beads for REC, attended offsite AA meeting and watched TV/Movies. SE: maria luisa
--- NOTE | 2017-04-11 04:54 | NUR ---
Bed Note: Clt lay motionless in bed with eyes closed showing no distress at all bed checks.
--- NOTE | 2017-04-11 16:07 | NUR ---
Tech Note: Client is working on Feelings Letters and Grief packet. He joined group on optional walk.
--- NOTE | 2017-04-11 22:53 | NUR ---
Tech Note: Client attended the on unit A.A.Panel. SE: Stephen
--- NOTE | 2017-04-12 04:40 | NUR ---
Client was in bed and motionless at all bed checks.
--- NOTE | 2017-04-12 09:54 | NUR ---
Tech notes: Client is working on Grieft pkt
--- NOTE | 2017-04-12 12:38 | NUR ---
Group 1.5 hr/ 10;1 Client helped with peer reviews for 2 peers, then as group members shared he was involved in feedback.
--- NOTE | 2017-04-12 13:35 | NUR ---
Education note: Client attended educational speaker Leidy on Tobacco
--- NOTE | 2017-04-12 14:00 | NUR ---
PEER REVIEWS/Morning Group 1.50 HRS: Clt participated in peer reviews and took a risk to give open and honest feedback to those receiving a review. Client shared that he is worried about going back to the town that he is living in [facility] everyone drinks there. Client was given feedback about going to a half way house and state he will not go due to just getting his kids back.
--- NOTE | 2017-04-12 18:16 | NUR ---
EDUCATION 1 HR: Counselor gave lecture on forgiveness.
--- NOTE | 2017-04-12 23:17 | NUR ---
tech note: Client attended Family Session. Client was redirected to put the $40.00 away that he had laying on his bedside stand. SE:
--- NOTE | 2017-04-13 05:37 | NUR ---
BED NOTE: Client was in bed, motionless with eyes closed all bed checks.
--- NOTE | 2017-04-13 11:30 | NUR ---
IS 1.5 hr/ Did do EMDR with client on his breakup with GF when he heard from mutual acquaintance that she cheated on client with clients good friend. Client said he was "Pissed off" and hurt, just talking about it before EMDR client felt his blood pumping in his arms/heart and tension in jaw. He said he knows he had good childhood so doesn't know why he feels worthless/not good enough but after the break up also felt "I did something wrong" and "I can't trust anyone". Client processed well with EMDR rated it an 8+ on scale of 0-10 and it came down to a 4 which client said he felt alot better. He got in touch with the hurt, and sad feelings, he felt the lump in throat and heaviness of chest, he admits he owes ammends to her for how he treated her. He kept feeling better, more happiness and home, by end he felt more free, felt loved and wanted. Client seemed to gain healing from this experience and counselor said he would still be processing it over next couple days so will discuss more next session. Also did go over clients assignments, is to fill out Relapse Prevention packet, he did the SAY "NO" boundaries over the weekend and said it went well, wasn't as hard as he thought it would be. Client shared about family program last night and felt it went good even though he felt his parents and him had talked in past about most of what was on the letters, he said when his dad cried he cried too.
--- NOTE | 2017-04-13 15:00 | NUR ---
Relapse Prevention, 1.0 hours, Client attended and actively participated in relapse prevention education which focused on completing a relapse quiz and discussion.
--- NOTE | 2017-04-13 16:27 | NUR ---
Tech Note: Client participated in light stretching for morning exercise and went on an outdoor walk in the afternoon. Client stated that he is working on, "Grief."
--- NOTE | 2017-04-13 17:21 | NUR ---
Education 1 Hour: Client heard a presentation on Sexually Transmitted Disease.
--- NOTE | 2017-04-13 23:34 | NUR ---
TECH NOTE: Client Attended Alumni meeting, played Catch Phrase for REC, participated in Guided Meditation, and attended AA meeting. SE: Ashish
--- NOTE | 2017-04-14 04:35 | NUR ---
Bed Note: Client was in bed and motionless at all bed checks.
--- NOTE | 2017-04-14 11:00 | NUR ---
Tech Notes: Client is working on Relapse prevention
--- NOTE | 2017-04-14 11:30 | NUR ---
GROUP 1.5 HRS. 1:11 Client participated in orienting new peer to purpose and rules of group. Group discussion included grief and loss of loved ones including miscarriages for a couple of peers. This client appeared attentive but did no personal sharing.
--- NOTE | 2017-04-14 12:51 | NUR ---
Education Note: Client attended education by [facility]
--- NOTE | 2017-04-14 18:19 | NUR ---
EDUCATION 1HR: Counselor gave presentation on Unresolved Anger.
--- NOTE | 2017-04-14 18:55 | NUR ---
SPIRITUAL EDUCATION 1 HR. ORIENTED NEWCOMERS, AND TODAYS TOPIC WAS THE SPIRITUAL QUESTION GAME DESIGNED TO START PEOPLE THINKING ALONG SPIRITUAL LINES AND GET MORE COMFORTABLE DISCUSSING IT.
--- NOTE | 2017-04-14 22:24 | NUR ---
TECH NOTE: Client went on a walk for REC and attended NA meeting. SE: NA meeting
--- NOTE | 2017-04-15 04:48 | NUR ---
BED NOTE: Client was in bed, motionless with eyes closed all three bed checks.
--- NOTE | 2017-04-15 12:59 | NUR ---
Morning group: 1:10: 1.5 hrs. Clt attended and actively participated ingroup discussion. Responded to another clt's feeing of being in a void with, just taking one day at a time and the rest will fall into place. Commented on his own stuberness and that he is listening to others more. Jessica Frederick, student
--- NOTE | 2017-04-15 13:57 | NUR ---
Tech Note: Clt went on walk, watched "How to Sabotage Your Treatment" and is working on Relapse Prevention.
--- NOTE | 2017-04-15 16:05 | NUR ---
Step education 1 hr/ Focus of education was on step 8 making amends. Each person wrote down answers of a set of questions on step 8 and then we discussed. This person participated and on the question do I have a relationship that needs healing? He said yes with his parents.
--- NOTE | 2017-04-15 17:15 | NUR ---
IS 1 hr/ Client did have Relapse Prevention packet completed. He did a great job and was reinforced with his need to call sponsor 3-7x/week and attend as many meetings a week as is possible. He shared Boredom and thinking recovery would be boring is a relapse trigger to him but he is excited with idea of going to AA/NA functions and named 2 in his area coming up soon. Client was encouraged by this counselor to go and counselor did call his PO that is really is important that client can go, plus what his aftercare will be. Client was given Survey to do. He states he feels much better since EMDR and he wrote VENT letter to his lyn friend that cheated with his GF, said he really wasn't as angry but doesn't trust this lyn for many reasons so is done being a friend. Client is growing alot and showing boundaries. He shows a value for recovery and meetings.
--- NOTE | 2017-04-15 19:55 | NUR ---
Education Note 1 HR: Clt watched video by Lenin Trujillo entitled "My Attitude".
--- NOTE | 2017-04-15 22:54 | NUR ---
Tech Note: Client Participated in guided meditation and attended the on site A.A.Meeting. Client played a game for rec. SE: A.A.Meeting
--- NOTE | 2017-04-16 05:02 | NUR ---
Bed Note: Client was in bed and motionless at all bed checks.
--- NOTE | 2017-04-16 12:54 | NUR ---
AM RES GROUP 1.5 HRS. RATIO 11/19. Topics today were on assignments shared, marijuana, and addiction concept. We also oriented newcomers. This client gave good confrontive and thought provoking feedback to a peer discounting disease concept.
--- NOTE | 2017-04-16 13:00 | NUR ---
PEER REVIEWS 1.5 HRS: Clt participated in peer review process and received his own. He heard he is quiet, angry, judgemental, stuck in his head and in his ways, isolates, puts up sapp, puts himself on a pedestal, is guarded, stubborn, close-minded, needs to find a HP, and doesn't feel like he's part of the problem. He flet sad and glad.
--- NOTE | 2017-04-16 13:27 | NUR ---
Tech Note: Clt joined group on outside walk and watched "Marijuana" by Lenin Trujillo. Regt is working on Perfectionism.
--- NOTE | 2017-04-16 21:08 | NUR ---
Tech Note: Clt read guidelines with grp, attended offsite AA mtg, used phone and watched tv. SE was peer review
--- NOTE | 2017-04-16 23:07 | NUR ---
Tech note: Client played games and watched movies. Client walked to an offsite AA meeting. SE: Peer rev
--- NOTE | 2017-04-17 04:05 | NUR ---
Bed Note: Clt lay motionless in bed with eyes closed showing no distress at all bed checks.
--- NOTE | 2017-04-17 16:35 | NUR ---
Tech Note: Client attended A.A.Meeting at [facility] and [place] and is working on the Big Book.
--- NOTE | 2017-04-17 23:00 | NUR ---
tech note: client c/o level 6 headache,motrin 400 mg given @ 2300.
--- NOTE | 2017-04-17 23:28 | NUR ---
Tech note: Client played catch phase for rec, had cake to celebrate a peers birthday and walked to an offsite AA meeting. SE: sunrise
--- NOTE | 2017-04-18 04:37 | NUR ---
tech note: client was motionless in no distress at all bed checks.
--- NOTE | 2017-04-18 16:21 | NUR ---
Tech Note: Client working on reading the Big Book.
--- NOTE | 2017-04-18 22:31 | NUR ---
TECH NOTE: Client attended AA panel speaker, participated in community clean and watched TV/movies. Given luggage SE: lunch
--- NOTE | 2017-04-19 05:33 | NUR ---
tech note: client was motionless in no distress at all bed checks.
--- NOTE | 2017-04-19 09:10 | NUR ---
IS .5 hr/ Did meet with client and discussed his progress in treatment and his aftercare, gave him a copy of his Continued Care Plan and he did read booklet on perfectionism. He was given a medallion, a hug and he did do the Survey last weekend. Client states he has several people he knows and 2 techs that are going to the [facility] so he is excited. When home he plans to find a new sponsor. Did call his Prob.Officer last week to state it is very important that client can go to [facility] and other such activities with AA/NA people and PO sounds supportive.
--- NOTE | 2017-04-19 10:23 | NUR ---
DISCHARGE NOTE Client left tx with his mother, all personal belongings were sent with. Discharge instructions gone over and a copy given.
--- NOTE | 2017-06-09 13:37 | DS ---
ADMIT: 03/22/2017 RM/LOC: [facility] MR#: [id number] [address] [id number] JAMILAH SAMANIEGO [id number] [address] [place] [id number] General Discharge Summary SEX: M AGE: 26 : 1990 ADMISSION DATE: 03/22/2017 DISCHARGE DATE: 04/19/2017 ADMITTING DIAGNOSIS: As per history and physical. FINAL DIAGNOSES: 1. Alcohol use disorder, severe. 2. Tobacco use disorder, moderate. COMPLICATIONS: None. OPERATIONS: None. CLINICAL HISTORY: The patient is a 26-year-old white male from [place], [place], admitted to the residential care program for treatment of his alcohol use disorder. For details of his pattern of usage and problems associated with his ongoing alcohol dependence, please see the clinical history portion of the dictated history and physical. Please also see dictated history and physical for past medical history and pertinent findings on physical exam. The patient comes to treatment following his 3rd arrest for DUI. LABORATORY AND X-RAY SUMMARY FROM THIS ADMISSION: None indicated, none performed. HOSPITAL COURSE: The patient was admitted to the residential care program and assigned to his primary counselor, Umu Lamas. He remained in the treatment program from 03/22/2017 through 04/19/2017. While in treatment, he participated in individual therapy, group therapy as well as family education and family group sessions. He participated in the family education programs with his parents, who did come to the family program. He was given the educational series on substance abuse and worked on many of these assignments during his stay at the treatment program. While in treatment, he was accepting of his substance abuse problem. He worked well with the staff in both individual and group settings. He was able to complete step 1 of AA during this level of care. He had a very positive attitude towards treatment, and he was selected by staff to be the vice president client services during his last week and a half of treatment. The patient had a very positive attitude towards treatment and seriousness about his recovery. While in treatment, he did participate in EMDR therapy to deal with past trauma. It was recommended that he continue with EMDR therapy post treatment. He was able to successfully complete all of his treatment goals. He gained a better understanding of the disease concept of addiction and was able to accept his powerlessness over ADMIT: 03/22/2017 RM/LOC: [facility] MR#: [id number] [address] [address] JAMILAH SAMANIEGO [id number] [place] [address] General Discharge Summary SEX: M AGE: 26 : 1990 alcohol and drugs. He did EMDR therapy with regard to the traumatic break-up with his girlfriend and responded well to this. He as noted completed his residential treatment goals and was felt to be ready for the next level of care. The patient was dismissed to outpatient care. He is going to do outpatient care at [facility] doing weekly individual and weekly group sessions. He is to also attend 3 to 5 AA or NA meetings per week and maintain regular contact with a sponsor. CONDITION AT DISCHARGE: [place] to be improved. His only medications at dismissal were lypk-[id number] multivitamin and [id number]-[id number] thiamine supplement. Prognosis is felt to be good if he follows through on aftercare treatment recovery plan. dAelso Lindsey MD/ tomas JOB #: [id number] CC: Adelso Lindsey MD, Attending Physician FAMILY PHYSICIAN, Family Physician
== END 2017-04-19 10:26 | disposition home or self-care (01) | DRG 895 ==
LOC: ADTC 10:28
PROVIDERS: ADMIT Family Medicine
PROC: HZ34ZZZ Individual Counseling for Substance Abuse Treatment, Interpersonal (ICD-10-PCS; principal; 2017-03-22)
PROC: HZ63ZZZ Family Counseling for Substance Abuse Treatment (ICD-10-PCS; principal; 2017-03-22)
PROC: HZ43ZZZ Group Counseling for Substance Abuse Treatment, 12-Step (ICD-10-PCS; principal; 2017-03-22)
DX: F10.10 Alcohol abuse, uncomplicated (principal); F17.210 Nicotine dependence, cigarettes, uncomplicated; Z65.3 Problems related to other legal circumstances